=== PATIENT | female | born 1960 | race American Indian/Alaskan Native ===

== ENCOUNTER 2018-10-05 20:40 | Observation (INO) | payer BC, OTHER ==
[2018-10-05 20:41] VITALS: BMI 42.4
--- NOTE | 2018-10-05 21:24 | ED PDOC ---
Arrival/HPI - General Chief Complaint: Headache Time Seen by Provider: 10/05/18 21:13 Historian: Patient - History of Present Illness Narrative History of Present Illness (Text): 10/05/18 21:22 Lexi Fierro is a 57 year old female, whose past medical history includes CVA, hypertension, and hyperlipidemia, who presents to the emergency department complaining of flank pain and headache. Patient states she has been experiencing headache and bilateral flank pain for the past 2-3 days. Patient reports a low grade fever yesterday and some right sided neck discomfort. Patient notes she was recently seen at an Urgent Care for similar symptoms and given IM antibiotics and prescription for Macrobid for a UTI. Patient denies any chills, abdominal pain, nausea, vomiting, diarrhea, dizziness, focal neurological deficits, or any other complaints. Symptom Onset: Gradual Symptom Course: Unchanged Activities at Onset: Light Context: Home Past Medical History - Provider Review Nursing Documentation Reviewed: Yes - Tetanus Immunization Tetanus Immunization: Unknown - Cardiac Hx Hypertension: Yes - Pulmonary Hx Respiratory Disorders: No - Neurological HX Cerebrovascular Accident: Yes (2012) - Renal Hx Renal Disorder: No - Endocrine/Metabolic Hx Diabetes Mellitus Type 2: Yes - Hematological/Oncological Hx Blood Disorders: No - Psychiatric Hx Psychophysiologic Disorder: No Hx Substance Use: Yes - Surgical History Other/Comment: hernia age 1, mandible cyst 14yrs, couple of etopic pregnancies - Anesthesia Hx Anesthesia: Yes Hx Anesthesia Reactions: No Hx Malignant Hyperthermia: No - Suicidal Assessment Feels Threatened In Home Enviroment: No Family/Social History - Physician Review Nursing Documentation Reviewed: Yes Family/Social History: Unknown Family HX Smoking Status: Former Smoker Hx Alcohol Use: No Hx Substance Use: Yes Substance used: marijuana Allergies/Home Meds Allergies/Adverse Reactions: Allergies No Known Allergies Allergy (Verified 10/05/18 21:11) Home Medications: Home Meds Medication Instructions Recorded Confirmed Amlodipine/Valsartan [Exforge 10 1 tab PO DAILY 04/10/15 04/10/15 mg-320 mg] Aspirin [Aspirin EC] 81 mg PO DAILY 04/10/15 04/10/15 Carvedilol Phosphate [Coreg Cr] 80 mg PO DAILY 04/10/15 04/10/15 Rosuvastatin Calcium [Crestor] 5 mg PO DAILY 04/10/15 04/10/15 Vitamin B Complex [Super B100] 1 cap PO DAILY 04/10/15 04/10/15 Review of Systems - Physician Review All systems were reviewed & negative as marked: Yes - Review of Systems Constitutional: Fevers Eyes: Normal ENT: Normal Respiratory: Normal Cardiovascular: Normal Gastrointestinal: Normal Genitourinary Female: Normal Musculoskeletal: Back Pain, Neck Pain Skin: Normal Neurological: Headache Endocrine: Normal Hemo/Lymphatic: Normal Psychiatric: Normal Physical Exam Vital Signs Reviewed: Yes Vital Signs Temp Pulse Resp BP Pulse Ox 10/05/18 21:09 99.2 F 96 H 17 189/94 H 96 Temperature: Afebrile Blood Pressure: Hypertensive Pulse: Regular Respiratory Rate: Normal Appearance: Positive for: Well-Appearing, Non-Toxic, Comfortable Pain Distress: None Mental Status: Positive for: Alert and Oriented X 3 - Systems Exam Head: Present: Atraumatic, Normocephalic Pupils: Present: PERRL Extroacular Muscles: Present: EOMI Conjunctiva: Present: Normal Mouth: Present: Moist Mucous Membranes Neck: Present: Normal Range of Motion Respiratory/Chest: Present: Clear to Auscultation, Good Air Exchange. No: Respiratory Distress, Accessory Muscle Use Cardiovascular: Present: Regular Rate and Rhythm, Normal S1, S2. No: Murmurs Abdomen: No: Tenderness, Distention, Peritoneal Signs Back: Present: CVA Tenderness (Bilateral CVA tenderness) Upper Extremity: Present: Normal Inspection. No: Cyanosis, Edema Lower Extremity: Present: Normal Inspection. No: Edema Neurological: Present: GCS=15, CN II-XII Intact, Speech Normal Skin: Present: Warm, Dry, Normal Color. No: Rashes Psychiatric: Present: Alert, Oriented x 3, Normal Insight, Normal Concentration Medical Decision Making ED Course and Treatment: 10/05/18 21:22 Impression: 57 year old female complaining of headache, bilateral flank pain, low-grade fever, and right-sided neck discomfort. Plan: -- CT Head w/o contrast -- Labs -- Urinalysis -- IV fluids -- Reassess and disposition Progress Notes: 10/05/18 23:15 Reviewed radiology, CXR shows no acute processes. CT Head: BRAIN Chronic periventricular and subcortical microvascular disease is seen. VENTRICLES: There is generalized parenchymal atrophy noted as demonstrated by symmetrical dilatation of ventricles and sulci. ORBITS: The orbits are unremarkable. SINUSES AND MASTOIDS: The paranasal sinuses and mastoid air cells are clear. BONES: No fracture. SOFT TISSUES: Unremarkable. MISCELLANEOUS: No acute intracranial pathology. IMPRESSION: 1. There is generalized parenchymal atrophy noted as demonstrated by symmetrical dilatation of ventricles and sulci. 2. Chronic periventricular and subcortical microvascular disease is seen. 3. No acute intracranial pathology. Electronically signed on Oct 05, 2018 11:03:16 PM EST by: Servando Levine M.D., MBA Certified By [employer] & [employer] Fellowship Trained MRI and CT Specialist 10/06/18 02:50 CT Abdomen and Pelvis:Subsegmental atelectatic changes in the lower lobes. Mild pericardial effusion. Mild cardiomegaly. Small sliding hiatal hernia. Uncomplicated colonic diverticulosis. 2.9 cm right renal cyst. Normal unenhanced liver. Normal gallbladder and extrahepatic biliary system. Normal unenhanced spleen. Normal pancreas. Normal bilateral adrenal glands. Normal size of the right kidney. There is no right renal mass. There are no right renal calculi. There is no right hydronephrosis. Normal visualized right ureter. Normal size of the left kidney. There is no left renal mass. There are no left renal calculi. There is no left hydronephrosis. Normal visualized left ureter. Normal visualized stomach. Normal small intestine. Normal colon. The appendix is visualized and appears normal. There is no demonstrated peritoneal fluid. Normal abdominal aorta. Normal inferior vena cava. Normal retroperitoneum. Normal urinary bladder. There is no pelvic mass lesion or lymphadenopathy. There is no pelvic fluid. Normal abdominal wall. Normal osseous structures. IMPRESSION: Right renal cyst, likely simple. Subsegmental atelectatic changes in the lower lobes. Mild pericardial effusion. Mild cardiomegaly. Small sliding hiatal hernia. Uncomplicated colonic diverticulosis. 10/06/18 03:[address] Guerra, who is aware and agrees with plan. Accepts pt in to hospitalist. Pt will go to [facility] observation for intractable flank pain, headache, and renal insufficiency. chairman president and chief executive officer refrigeration supervisor notified. - Lab Interpretations I have reviewed the lab results: Yes - RAD Interpretation Objects Conservator: ED Physician, Radiologist - Scribe Statement The provider has reviewed the documentation as recorded by the Jessica Morris Provider Scribe Attestation: All medical record entries made by the Jessica were at my direction and personally dictated by me. I have reviewed the chart and agree that the record accurately reflects my personal performance of the history, physical exam, medical decision making, and the department course for this patient. I have also personally directed, reviewed, and agree with the discharge instructions and disposition. Disposition/Present on Arrival - Present on Arrival Any Indicators Present on Arrival: No History of DVT/PE: No History of Uncontrolled Diabetes: No Urinary Catheter: No History of Decub. Ulcer: No History Surgical Site Infection Following: None - Disposition Have Diagnosis and Disposition been Completed?: Yes Diagnosis: Bilateral flank pain, Renal insufficiency, Headache Disposition: HOSPITALIZED Disposition Time: 03:18 Patient Problems: Current Active Problems Problem Status Onset Bilateral flank pain Acute Headache Acute Renal insufficiency Acute Condition: STABLE
[2018-10-05] MEDS ORDERED: Sodium Chloride 0.9% 1,000 ML IV STA (21:26)
[2018-10-05 22:05] LABS: HEMOGLOBIN 10.6 g/dL (12.0-16.0); MEAN CELL VOLUME 81.8 fl (80.0-105.0); MEAN CORPUSCULAR HEMOGLOBIN 26.4 pg (25.0-35.0); MEAN CORPUSCULAR HGB CONC 32.3 g/dl (31.0-37.0); MEAN PLATELET VOLUME 10.4 fl (7.0-11.0); RBC 4.01 10^6/uL (3.5-6.1)
[2018-10-05 22:37] LABS: ALBUMIN 4.4 g/dL (3.0-4.8); CALCIUM 9.8 mg/dL (8.4-10.5)
[2018-10-05 23:12] LABS: URINE APPEARANCE CLEAR (CLEAR); URINE BILIRUBIN NEGATIVE (NEGATIVE); URINE BLOOD SMALL (NEGATIVE); URINE COLOR YELLOW (YELLOW); URINE GLUCOSE (UA) NEGATIVE (NEGATIVE); URINE LEUKOCYTE ESTERASE NEGATIVE Leu/uL (NEGATIVE); URINE PROTEIN >=300 mg/dL (<30 mg/dL); URINE UROBILINOGEN 0.2 E.U./dL (<1 E.U./dL)
[2018-10-05 23:15] LABS: URINE BACTERIA TRACE /hpf; URINE EPITHELIAL CELLS 0 - 2 /hpf (0-5); URINE RBC 0 - 2 /hpf (0-2)
[2018-10-06] MEDS ORDERED: Morphine 2 mg/ml ISec IVP STA (03:08)
[2018-10-06] MEDS ORDERED: Sodium Chloride 0.9% 1,000 ML IV SCH (03:15)
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
[2018-10-06] MEDS: cefTRIAXone 1 gm 1 GM/100 ML BAG IVPB SCH (04:45)
[2018-10-06 05:28] LABS: BASO # 0.02 K/mm3 (0.0-2.0); BASO % 0.3 % (0.0-3.0); EOS % 0.4 % (1.5-5.0); GRAN # 5.47 (1.4-6.5); GRAN % 69.3 % (50.0-68.0); HEMOGLOBIN 10.1 g/dL (12.0-16.0); LYMPH # 1.9 (1.2-3.4); LYMPH % 23.8 % (22.0-35.0); MEAN CELL VOLUME 82.4 fl (80.0-105.0); MEAN CORPUSCULAR HEMOGLOBIN 26.6 pg (25.0-35.0); MEAN CORPUSCULAR HGB CONC 32.3 g/dl (31.0-37.0); MEAN PLATELET VOLUME 10.2 fl (7.0-11.0); MONO # 0.5 (0.1-0.6); MONO % 6.2 % (1.0-6.0); RBC 3.8 10^6/uL (3.5-6.1); WHITE BLOOD COUNT 7.9 10^3/uL (4.5-11.0)
[2018-10-06 05:59] LABS: ALBUMIN 4.5 g/dL (3.0-4.8); IRON 47 ug/dL (45-180)
[2018-10-06 06:08] LABS: % IRON SATURATION 20 % (20-55); TOTAL IRON BINDING CAPACITY 235 ug/dL (265-497)
[2018-10-06 06:09] LABS: TROPONIN I 0.03 ng/mL
[2018-10-06] MEDS ORDERED: Pneumococcal 23-Valent Vaccine IM ONE (06:38)
[2018-10-06 07:26] LABS: BARBITURATES, UR NEGATIVE (NEGATIVE); BENZODIAZEPINES, UR NEGATIVE (NEGATIVE); OPIATES, UR POSITIVE (NEGATIVE); PHENCYCLIDINE, UR NEGATIVE (NEGATIVE)
[2018-10-06 07:33] LABS: CREATININE,RANDOM URINE 171 mg/dL
[2018-10-06] MEDS: Insulin Lispro (humaLOG) LOW Coverage SC SCH ×4 (08:00→22:10)
[2018-10-06 08:36] LABS: FREE T4 0.94 ng/dL (0.78-2.19)
[2018-10-06 08:50] LABS: OSMOLALITY,URINE 564 mosm/kg (300-1000)
--- NOTE | 2018-10-06 09:12 | RAD ---
Date of service: 10/05/2018 HISTORY: medical clearance COMPARISON: No prior. FINDINGS: LUNGS: No active pulmonary disease. PLEURA: No significant pleural effusion identified, no pneumothorax apparent. CARDIOVASCULAR: No aortic atherosclerotic calcification present. Mild cardiomegaly. Mild vascular congestion OSSEOUS STRUCTURES: No significant abnormalities. VISUALIZED UPPER ABDOMEN: Normal. OTHER FINDINGS: None. IMPRESSION: Mild cardiomegaly and mild vascular congestion
[2018-10-06] MEDS: Lidocaine 5% Patch TD SCH (10:04)
--- NOTE | 2018-10-06 10:22 | CT ---
Date of service: 10/05/2018 PROCEDURE: CT HEAD WITHOUT CONTRAST. HISTORY: headache COMPARISON: None available. TECHNIQUE: Axial computed tomography images were obtained through the head/brain without intravenous contrast. Radiation dose: Total exam DLP = 907.57 mGy-cm. This CT exam was performed using one or more of the following dose reduction techniques: Automated exposure control, adjustment of the mA and/or kV according to patient size, and/or use of iterative reconstruction technique. FINDINGS: HEMORRHAGE: No intracranial hemorrhage. BRAIN: No mass effect or edema. Chronic microvascular changes are seen in the subcortical and periventricular white matter right greater than left. VENTRICLES: Unremarkable. No hydrocephalus. CALVARIUM: Unremarkable. PARANASAL SINUSES: Unremarkable as visualized. No significant inflammatory changes. MASTOID AIR CELLS: Unremarkable as visualized. No inflammatory changes. OTHER FINDINGS: The report concurs with the preliminary [facility] report IMPRESSION: No acute intracranial findings
--- NOTE | 2018-10-06 11:13 | CARD ---
APPROVED REPORT Date of service: 10/06/2018 EKG Measurement Heart [id number] <Conclusion> Normal sinus rhythm Possible Left atrial enlargement
[2018-10-06 13:09] LABS: FOLATE 14.9 ng/mL
--- NOTE | 2018-10-06 13:32 | CT ---
PROCEDURE: CT Abdomen and Pelvis without Oral or IV contrast. HISTORY: flank pain COMPARISON: None available TECHNIQUE: Contiguous axial images of the abdomen and pelvis. No oral or IV contrast administered. Coronal and Sagittal reformats generated and reviewed. Radiation dose: Total exam DLP = 968.91 mGy-cm. This CT exam was performed using one or more of the following dose reduction techniques: Automated exposure control, adjustment of the mA and/or kV according to patient size, and/or use of iterative reconstruction technique. FINDINGS: There is limited evaluation of the solid organs without the administration of IV contrast. LOWER THORAX: Mild bibasilar atelectasis. No visible pleural effusion or pneumothorax. Small pericardial effusion. LIVER: Unremarkable unenhanced appearance. GALLBLADDER AND BILE DUCTS: Contracted state precludes adequate evaluation. PANCREAS: Unremarkable unenhanced appearance. SPLEEN: Unremarkable unenhanced appearance. ADRENALS: Unremarkable unenhanced appearance. KIDNEYS AND URETERS: No hydronephrosis or obstructing renal calculus. Right renal cyst. BLADDER: The urinary bladder appears unremarkable. REPRODUCTIVE: Uterus is present. APPENDIX: The appendix appears within normal limits of caliber. No secondary signs of acute appendicitis. BOWEL: The stomach is nondistended. Lack of oral contrast limits evaluation for bowel pathology. The bowel loops appear within normal limits of caliber without evidence of intestinal obstruction. Diverticulosis without CT evidence of acute diverticulitis. PERITONEUM: No significant free fluid. No definite free air. LYMPH NODES: No bulky lymphadenopathy identified. VASCULATURE: Atherosclerotic calcifications of the aorta. No aortic aneurysm. BONES: Mild degenerative changes. OTHER FINDINGS: None. IMPRESSION: Mild bibasilar atelectasis. Small pericardial effusion. Diverticulosis without CT evidence of acute diverticulitis. Right renal cyst. Additional incidental findings as above. Preliminary impression was provided by Fundology.
--- NOTE | 2018-10-06 14:58 | CP.PCM.CON ---
History of Present Illness - History of Present Illness History of Present Illness: Nephrology Consultation Note: Assessment: Stable Acute Kidney Injury (N17.9) likely due to hemodynamic changes, decreased oral intake Hypertensive Chronic Kidney Disease (I12.9) Chronic Kidney Disease (N18.3) Stage 3 with 1.5 gram albuminuria (R80.9) likely due to HTN, NSAIDs Anemia (D64.9), Vit D def Secondary Hyperparathyroidism (E21.1) uncontrolled severe HTn with urgency Plan No acute need for renal replacement therapy at this time. Hypertension control with meds as ordered. Maintain hemodynamics stable. Avoid hypotension. Patient not on ACEI/ARB at present but can resume ARB, switch to losartan 100 mg/d (due to recent FDA concerns on valsartan) Monitor Input/Output, daily weights and renal function with basic metabolic panel start iron, MVI and weekly Vit D Check urine analysis, spot protein/creatinine, albumin/creatinine ratio Check GN work up as C3, C4, JYOTI, Anti dsDNA, HIV/Hep B and Hep C serology Anemia work up with TSAT/Ferritin/Vitamin B12/folate, serum protein electrophoresis with immunofixation, serum free light chain assay ([facility]/Lambda) Check for 25-OH vitamin D, iPTH, phosphorus level. Secondary HTN work up with plasma renin/aldosterone, plasma metanephrine and renal artery Doppler to r/o renal artery stenosis Dose meds/antibiotics for reduced GFR. Avoid fleets enema/magnesium based laxatives. Avoid nephrotoxins/NSAIDs/ iodinated contrast (unless needed emergently) Glycemic control. pt stop licorice Further work up/management as per primary team Thanks for allowing me to participate in care of your patient. Will follow patient with you. Please call if any Qs. had d/w daughter and team Dr Rahat Polanco Office: [phone] Chief Complaint; headache Reason for consult: Acute Kidney Injury, CKD HPI: Pt is a 57 F with hx of hypertension (years) CVA hyperlipidemia asthma CKD ? stage (likely 3) presented with complaints of uncontrolled HTN, headache and abnormal labs Denies OTC/herbal meds or NSAIDs now but had takes alleve for years inpast until 1 month ago. reprts headache with left blurry vision and decreased appetite/karina intake for last few days. No recent iodinated contrast exposure. No obvious episodes of low BP. sometimes eats licorice candy denies smoking/etoh pt says she was told that she had weak kidney many years ago. she hadn't followed up with doctors lab in sep showed cr 1.9, urine alb/cr 1.5 gram. vit d 9 ROS: Cardiovascular: No chest pain. Pulmonary: No shortness of breath Gastrointestinal: denies abdominal pain No nausea. No vomiting. Genitourinary: No pain while urinating. Denies blood in urine. All other negative except as mentioned in HPI Physical Examination: General Appearance: Comfortable, in no acute respiratory distress, co-operative . obese Vitals reviewed and noted as below Head; Atraumatic, normocephalic ENT: no ulcers no thrush. Tongue is midline. Oropharynx: no rash or ulcers. EYES: Pupils are equal, round and reactive to light accommodation. Eye muscles and extraocular movement intact. Sclera is anicteric. Neck; supple no lymphadenopathy, no thyromegaly or bruit Lungs: Normal respiratory rate/effort. Breath sounds bilateral equal and clear Heart: Normal rate. s1s2 normal. No rub or gallop. Extremities: no edema. No varicose veins Neurological: Patient is alert, awake and oriented to person, place and time. No focal deficit. Strength bilateral appropriate and equal Skin: Warm and dry. Normal turgor. No rash. Palpitation: Normal elasticity for age Abdomen: Abdomen is soft. Bowel sounds +. There is no abdominal tenderness, no guarding/rigidity no organomegaly Psych: normal insight and normal affect/mood MSK: no joint tenderness or swelling. Digits and nails normal, no deformity : kidney or bladder not palpable Labs/imaging reviewed. Past medical history, past surgical history, family history, social history, allergy reviewed and noted as below Family hx: no hx of CKD. Rest non-contributory adrenal WNLS. rt renal cyst Past Patient History - Tetanus Immunizations Tetanus Immunization: Unknown - Past Social History Smoking Status: Never Smoked - CARDIAC Hx Hypertension: Yes - PULMONARY Hx Respiratory Disorders: No - NEUROLOGICAL HX Cerebrovascular Accident: Yes (2012) - RENAL Hx Chronic Kidney Disease: No Hx Renal Failure: Yes - ENDOCRINE/METABOLIC Hx Diabetes Mellitus Type 2: Yes - HEMATOLOGICAL/ONCOLOGICAL Hx Blood Disorders: No - MUSCULOSKELETAL/RHEUMATOLOGICAL Hx Falls: No - GENITOURINARY/GYNECOLOGICAL Hx Urinary Tract Infection: Yes - PSYCHIATRIC Hx Psychophysiologic Disorder: No - SURGICAL HISTORY Other/Comment: hernia age 1, mandible cyst 12yrs, couple of etopic pregnancies - ANESTHESIA Hx Anesthesia: Yes Hx Anesthesia Reactions: No Hx Malignant Hyperthermia: No Meds Allergies/Adverse Reactions: Allergies Allergy/AdvReac Type Severity Reaction Status Date / Time No Known Allergies Allergy Verified 10/05/18 21:11 - Medications Medications: Current Medications Acetaminophen (Tylenol 325mg Tab) 650 mg PO Q6H PRN PRN Reason: Fever >100.4 F Amlodipine Besylate (Norvasc) 10 mg PO DAILY ON LICENSE OF [facility] Last Admin: 10/06/18 10:05 Dose: 10 mg Aspirin (Ecotrin) 81 mg PO DAILY ON LICENSE OF [facility] Last Admin: 10/06/18 10:05 Dose: 81 mg Atorvastatin Calcium (Lipitor) 10 mg PO DIN CELIO Ferrous Gluconate (Fergon) 324 mg PO TID ON LICENSE OF [facility] Hydralazine HCl (Apresoline) 10 mg IVP Q6H PRN PRN Reason: Systolic Blood Pressure Last Admin: 10/06/18 06:12 Dose: 10 mg Hydrochlorothiazide (Microzide) 12.5 mg PO DAILY ON LICENSE OF [facility] Last Admin: 10/06/18 10:05 Dose: 12.5 mg Ceftriaxone Sodium (Rocephin 1 Gram Ivpb) 1 gm in 100 mls @ 100 mls/hr IVPB DAILY ON LICENSE OF [facility]; Protocol Last Admin: 10/06/18 04:45 Dose: 100 mls/hr Insulin Human Lispro (Humalog Low) 0 units SC ACHS ON LICENSE OF [facility]; Protocol Last Admin: 10/06/18 12:00 Dose: Not Given Lidocaine (Lidoderm) 1 ea TD DAILY ON LICENSE OF [facility] Last Admin: 10/06/18 10:04 Dose: 1 ea Valsartan (Diovan) 320 mg PO DAILY ON LICENSE OF [facility] Vitamin B Complex/Vit C/Folic Acid (Nephro-Billy) 1 tab PO 0800 ON LICENSE OF [facility] Results - Vital Signs Recent Vital Signs: Last Vital Signs Temp 99.2 F 10/06/18 06:05 Pulse 86 10/06/18 14:00 Resp 18 10/06/18 14:00 BP 139/84 10/06/18 14:00 Pulse Ox 100 10/06/18 14:00 - Labs Result Diagrams: 10/06/18 05:10 10/06/18 05:10 Labs: Laboratory Results - last 24 hr 10/05/18 10/05/18 10/05/18 21:52 22:22 22:49 WBC 8.0 RBC 4.01 Hgb 10.6 L Hct 32.8 L MCV 81.8 MCH 26.4 MCHC 32.3 RDW 15.0 H Plt Count 199 MPV 10.4 Gran % Lymph % (Auto) Norman % (Auto) Eos % (Auto) Baso % (Auto) Gran # Lymph # (Auto) Norman # (Auto) Eos # (Auto) Baso # (Auto) Sodium 136 Potassium 4.3 Chloride 104 Carbon Dioxide 21 Anion Gap 15 BUN 30 H Creatinine 2.1 H Est GFR ( Amer) 29 Est GFR (Non-Af Amer) 24 POC Glucose (mg/dL) Random Glucose 110 Hemoglobin A1c Calcium 9.8 Phosphorus Magnesium Iron TIBC % Saturation Transferrin Ferritin Total Bilirubin 0.6 AST 23 ALT 16 Alkaline Phosphatase 107 Troponin I Total Protein 8.8 H Albumin 4.4 Globulin 4.4 Albumin/Globulin Ratio 1.0 L Triglycerides Cholesterol LDL Cholesterol Direct HDL Cholesterol Vitamin B12 Folate Free T4 TSH 3rd Generation Urine Color Yellow Urine Appearance Clear Urine pH 6.0 Ur Specific [place] >= 1.030 Urine Protein >=300 H Urine Glucose (UA) Negative Urine Ketones Negative Urine Blood Small H Urine Nitrate Negative Urine Bilirubin Negative Urine Urobilinogen 0.2 Ur Leukocyte Esterase Negative Urine RBC 0 - 2 Urine WBC 1 - 3 Ur Epithelial Cells 0 - 2 Urine Bacteria Trace Urine Osmolality Ur Random Creatinine Ur Random Sodium Urine Opiates Screen Urine Methadone Screen Ur Barbiturates Screen Ur Phencyclidine Scrn Ur Amphetamines Screen U Benzodiazepines Scrn U Oth Cocaine Metabols U Cannabinoids Screen 10/06/18 10/06/18 10/06/18 04:30 04:30 04:31 WBC RBC Hgb Hct MCV MCH MCHC RDW Plt Count MPV Gran % Lymph % (Auto) Norman % (Auto) Eos % (Auto) Baso % (Auto) Gran # Lymph # (Auto) Norman # (Auto) Eos # (Auto) Baso # (Auto) Sodium Potassium Chloride Carbon Dioxide Anion Gap BUN Creatinine Est GFR ( Amer) Est GFR (Non-Af Amer) POC Glucose (mg/dL) Random Glucose Hemoglobin A1c Calcium Phosphorus Magnesium Iron TIBC % Saturation Transferrin Ferritin Total Bilirubin AST ALT Alkaline Phosphatase Troponin I Total Protein Albumin Globulin Albumin/Globulin Ratio Triglycerides Cholesterol LDL Cholesterol Direct HDL Cholesterol Vitamin B12 Folate Free T4 TSH 3rd Generation Urine Color Urine Appearance Urine pH Ur Specific [place] 1.025 Urine Protein Urine Glucose (UA) Urine Ketones Urine Blood Urine Nitrate Urine Bilirubin Urine Urobilinogen Ur Leukocyte Esterase Urine RBC Urine WBC Ur Epithelial Cells Urine Bacteria Urine Osmolality 564 Ur Random Creatinine 171 Ur Random Sodium 69 Urine Opiates Screen Positive H Urine Methadone Screen Negative Ur Barbiturates Screen Negative Ur Phencyclidine Scrn Negative Ur Amphetamines Screen Negative U Benzodiazepines Scrn Negative U Oth Cocaine Metabols Negative U Cannabinoids Screen Positive H 10/06/18 10/06/18 10/06/18 05:10 05:10 05:10 WBC 7.9 RBC 3.80 Hgb 10.1 L Hct 31.3 L MCV 82.4 MCH 26.6 MCHC 32.3 RDW 15.0 H Plt Count 200 MPV 10.2 Gran % 69.3 H Lymph % (Auto) 23.8 Norman % (Auto) 6.2 H Eos % (Auto) 0.4 L Baso % (Auto) 0.3 Gran # 5.47 Lymph # (Auto) 1.9 Norman # (Auto) 0.5 Eos # (Auto) 0.0 Baso # (Auto) 0.02 Sodium 138 Potassium 4.2 Chloride 103 Carbon Dioxide 23 Anion Gap 16 BUN 29 H Creatinine 2.1 H Est GFR ( Amer) 29 Est GFR (Non-Af Amer) 24 POC Glucose (mg/dL) Random Glucose 114 H Hemoglobin A1c 6.8 H Calcium 10.0 Phosphorus 4.4 Magnesium 2.2 Iron TIBC % Saturation Transferrin Ferritin 277.0 Total Bilirubin 0.5 AST 24 ALT 15 Alkaline Phosphatase 114 Troponin I 0.03 Total Protein 9.0 H Albumin 4.5 Globulin 4.5 Albumin/Globulin Ratio 1.0 L Triglycerides 308 H Cholesterol 418 H LDL Cholesterol Direct 129 HDL Cholesterol 46 Vitamin B12 394 Folate 14.9 Free T4 TSH 3rd Generation Urine Color Urine Appearance Urine pH Ur Specific [place] Urine Protein Urine Glucose (UA) Urine Ketones Urine Blood Urine Nitrate Urine Bilirubin Urine Urobilinogen Ur Leukocyte Esterase Urine RBC Urine WBC Ur Epithelial Cells Urine Bacteria Urine Osmolality Ur Random Creatinine Ur Random Sodium Urine Opiates Screen Urine Methadone Screen Ur Barbiturates Screen Ur Phencyclidine Scrn Ur Amphetamines Screen U Benzodiazepines Scrn U Oth Cocaine Metabols U Cannabinoids Screen 10/06/18 10/06/18 10/06/18 05:10 05:10 05:13 WBC RBC Hgb Hct MCV MCH MCHC RDW Plt Count MPV Gran % Lymph % (Auto) Norman % (Auto) Eos % (Auto) Baso % (Auto) Gran # Lymph # (Auto) Norman # (Auto) Eos # (Auto) Baso # (Auto) Sodium Potassium Chloride Carbon Dioxide Anion Gap BUN Creatinine Est GFR ( Amer) Est GFR (Non-Af Amer) POC Glucose (mg/dL) Random Glucose Hemoglobin A1c Calcium Phosphorus Magnesium Iron 47 TIBC 235 L % Saturation 20 Transferrin 187.96 L Ferritin Total Bilirubin AST ALT Alkaline Phosphatase Troponin I Total Protein Albumin Globulin Albumin/Globulin Ratio Triglycerides Cholesterol LDL Cholesterol Direct HDL Cholesterol Vitamin B12 Folate Free T4 0.94 TSH 3rd Generation 2.09 Urine Color Urine Appearance Urine pH Ur Specific [place] Urine Protein Urine Glucose (UA) Urine Ketones Urine Blood Urine Nitrate Urine Bilirubin Urine Urobilinogen Ur Leukocyte Esterase Urine RBC Urine WBC Ur Epithelial Cells Urine Bacteria Urine Osmolality Ur Random Creatinine Ur Random Sodium Urine Opiates Screen Urine Methadone Screen Ur Barbiturates Screen Ur Phencyclidine Scrn Ur Amphetamines Screen U Benzodiazepines Scrn U Oth Cocaine Metabols U Cannabinoids Screen 10/06/18 06:28 WBC RBC Hgb Hct MCV MCH MCHC RDW Plt Count MPV Gran % Lymph % (Auto) Norman % (Auto) Eos % (Auto) Baso % (Auto) Gran # Lymph # (Auto) Norman # (Auto) Eos # (Auto) Baso # (Auto) Sodium Potassium Chloride Carbon Dioxide Anion Gap BUN Creatinine Est GFR ( Amer) Est GFR (Non-Af Amer) POC Glucose (mg/dL) 87 Random Glucose Hemoglobin A1c Calcium Phosphorus Magnesium Iron TIBC % Saturation Transferrin Ferritin Total Bilirubin AST ALT Alkaline Phosphatase Troponin I Total Protein Albumin Globulin Albumin/Globulin Ratio Triglycerides Cholesterol LDL Cholesterol Direct HDL Cholesterol Vitamin B12 Folate Free T4 TSH 3rd Generation Urine Color Urine Appearance Urine pH Ur Specific [place] Urine Protein Urine Glucose (UA) Urine Ketones Urine Blood Urine Nitrate Urine Bilirubin Urine Urobilinogen Ur Leukocyte Esterase Urine RBC Urine WBC Ur Epithelial Cells Urine Bacteria Urine Osmolality Ur Random Creatinine Ur Random Sodium Urine Opiates Screen Urine Methadone Screen Ur Barbiturates Screen Ur Phencyclidine Scrn Ur Amphetamines Screen U Benzodiazepines Scrn U Oth Cocaine Metabols U Cannabinoids Screen
[2018-10-06] MEDS ORDERED: Ergocalciferol 50,000 Intl Units Cap PO SCH (15:00)
[2018-10-06 15:05] LABS: TOTAL PROTEIN,RANDOM URINE 1092 mg/L
--- NOTE | 2018-10-06 16:39 | CARD ---
APPROVED REPORT Date of service: 10/06/2018 EXAM: Two-dimensional and M-mode echocardiogram with Doppler and color Doppler. INDICATION CARDIOMEGALY 2D DIMENSIONS Left Atrium (2D)3.3 (1.6-4.0cm)IVSd1.9 (0.7-1.1cm) LVDd4.1 (3.9-5.9cm)PWd1.9 (0.7-1.1cm) LVDs2.7 (2.5-4.0cm)FS (%) 33.4 % LVEF (%)62.5 (>50%) M-Mode DIMENSIONS Aortic Root3.30 (2.2-3.7cm)Aortic Cusp Exc.1.50 (1.5-2.0cm) Aortic Valve AoV Peak Kkryjdew730.0cm/Giulia Peak GR.10mmHg Mitral Valve MV E Rvfjaarm86.0cm/sMV A Okpdeutp32.0cm/sE/A ratio0.7 TDI E/Lateral E'0.0E/Medial E'0.0 Tricuspid Valve TR Peak [id number] [id number] Peak Gr.19mmHg [id number] LEFT VENTRICLE The left ventricle is normal size. There is severe concentric left ventricular hypertrophy. The left ventricular function is normal. The left ventricular ejection fraction is within the normal range.63%. RIGHT VENTRICLE The right ventricle is normal size. The right ventricular systolic function is normal. ATRIA The left atrium size is normal. The right atrium size is normal. AORTIC VALVE Thickened Aortic Valve Opening Normal. MITRAL VALVE The mitral valve is normal in structure. Mitral regurgitation is trace to mild. TRICUSPID VALVE The tricuspid valve is normal in structure. PERICARDIAL EFFUSION Trace Pericardial Effusion Present. <Conclusion> LV Size Normal.There is severe concentric left ventricular hypertrophy. The left ventricular function is normal. The left ventricular ejection fraction is within the normal range.63%. LV Shows Moderate Diastolic Dysfunction. The right ventricle is normal size. The right ventricular systolic function is normal. The left atrium size is normal. The right atrium size is normal. Thickened Aortic Valve Opening Normal. The mitral valve is normal in structure. Mitral regurgitation is trace to mild. The tricuspid valve is normal in structure. Trace Pulmonic Regurge. Trace Pericardial Effusion Present.
[2018-10-06 18:01] LABS: HEPATITIS B SURFACE AG Negative (NEGATIVE)
[2018-10-06 18:06] LABS: HEPATITIS B CORE AB NEGATIVE (NEGATIVE)
[2018-10-06 18:19] LABS: HEPATITIS C ANTIBODY NEGATIVE (NEGATIVE)
--- NOTE | 2018-10-06 20:24 | US ---
PROCEDURE: Bilateral renal artery duplex ultrasound. CLINICAL HISTORY: Renal artery stenosis. Uncontrolled hypertension. Evaluate for renovascular hypertension. PHYSICIAN(S): Chase Gary M.D. TECHNIQUE: Duplex sonography with color-flow Doppler was used to evaluate the visualized segments of the main renal arteries. The patient was evaluated in a fasting state. Imaging in a supine and decubitus position was performed. Limited evaluation of the arcuate waveforms and resistive indices were performed. FINDINGS: The study is limited by bowel gas breathing and tortuous vessels. The kidneys are normal in size, shape, and location. The right kidney measures 11.2cm in length and the left kidney measures 11.3cm in length. No solid renal masses, abnormal calcifications, or hydronephrosis is seen. The main right renal artery is somewhat tortuous.. The peak systolic velocity in the right main renal artery is 98 cm/sec. This is consistent with a 0 to 49% stenosis in the main right renal artery. The arcuate waveforms are normal. The resistive index is normal. The main left renal artery is also somewhat tortuous.. The peak systolic velocity in the main left renal artery is 96cm/sec. This corresponds to a 0 to 49% stenosis in the main left renal artery. The arcuate waveforms and resistive indices are normal. IMPRESSION: 1. The main renal arteries are somewhat tortuous and visualization is limited 2. No sonographically significant stenosis is identified. 3. The kidneys are normal and symmetric in size. There are no solid renal masses, abnormal calcifications or hydronephrosis noted.
[2018-10-07 07:36] LABS: BASO # 0.02 K/mm3 (0.0-2.0); BASO % 0.3 % (0.0-3.0); EOS # 0.1 (0.0-0.7); EOS % 1.6 % (1.5-5.0); GRAN # 3.76 (1.4-6.5); HEMOGLOBIN 9.6 g/dL (12.0-16.0); LYMPH # 1.5 (1.2-3.4); LYMPH % 24.2 % (22.0-35.0); MEAN CELL VOLUME 81.5 fl (80.0-105.0); MEAN CORPUSCULAR HEMOGLOBIN 26.1 pg (25.0-35.0); MEAN PLATELET VOLUME 9.8 fl (7.0-11.0); MONO # 0.7 (0.1-0.6); MONO % 11.9 % (1.0-6.0); RBC 3.68 10^6/uL (3.5-6.1); RED CELL DISTRIBUTION WIDTH 14.7 % (11.5-14.5); WHITE BLOOD COUNT 6.1 10^3/uL (4.5-11.0)
[2018-10-07 07:59] LABS: ALBUMIN 4.1 g/dL (3.0-4.8); CALCIUM 9.5 mg/dL (8.4-10.5)
[2018-10-07] MEDS: Insulin Lispro (humaLOG) LOW Coverage SC SCH ×4 (08:28→22:00)
[2018-10-07] MEDS: Multivitamin Vitamin B Complex (Nephro-Vite) Tab PO SCH (10:48)
[2018-10-07] MEDS: Lidocaine 5% Patch TD SCH (10:48)
[2018-10-07] MEDS: cefTRIAXone 1 gm 1 GM/100 ML BAG IVPB SCH (10:48)
--- NOTE | 2018-10-07 11:00 | CP.PCM.PN ---
<CatyRalf - Last Filed: 10/07/18 11:50> Subjective - Date & Time of Evaluation Date of Evaluation: 10/07/18 Time of Evaluation: 10:51 - Subjective Subjective: Medicine Progress Note for Dr. Gonzalez Patient seen and examined at bedside. No acute overnight events. Patient sitting comfortably in bed. Patient offers no complaints. Patient denies CP, SOB, n/v/d, abdominal pain, fever, chills, MICHAELS or dizziness. Objective - Vital Signs/Intake and Output Vital Signs (last 24 hours): Temp Pulse Resp BP Pulse Ox 98.7 F 80 18 133/75 96 10/07/18 06:00 10/07/18 06:00 10/07/18 06:00 10/07/18 06:00 10/07/18 06:00 Intake and Output: 10/07/18 10/07/18 06:59 18:59 Intake Total 180 Output Total 0 Balance 180 - Medications Medications: Current Medications Acetaminophen (Tylenol 325mg Tab) 650 mg PO Q6H PRN PRN Reason: Fever >100.4 F Last Admin: 10/06/18 21:08 Dose: 650 mg Amlodipine Besylate (Norvasc) 10 mg PO DAILY [facility] Last Admin: 10/06/18 10:05 Dose: 10 mg Aspirin (Ecotrin) 81 mg PO DAILY [facility] Last Admin: 10/06/18 10:05 Dose: 81 mg Atorvastatin Calcium (Lipitor) 10 mg PO DIN [facility] Last Admin: 10/06/18 17:33 Dose: 10 mg Ergocalciferol (Drisdol 50,000 Intl Units Cap) 1 cap PO Q7D [facility] Last Admin: 10/06/18 15:28 Dose: 1 cap Ferrous Gluconate (Fergon) 324 mg PO TID [facility] Last Admin: 10/06/18 17:33 Dose: 324 mg Hydralazine HCl (Apresoline) 10 mg IVP Q6H PRN PRN Reason: Systolic Blood Pressure Last Admin: 10/06/18 06:12 Dose: 10 mg Hydrochlorothiazide (Microzide) 12.5 mg PO DAILY [facility] Last Admin: 10/06/18 10:05 Dose: 12.5 mg Ceftriaxone Sodium (Rocephin 1 Gram Ivpb) 1 gm in 100 mls @ 100 mls/hr IVPB DAILY [facility]; Protocol Last Admin: 10/06/18 04:45 Dose: 100 mls/hr Insulin Human Lispro (Humalog Low) 0 units SC ACHS [facility]; Protocol Last Admin: 10/07/18 08:28 Dose: Not Given Lidocaine (Lidoderm) 1 ea TD DAILY [facility] Last Admin: 10/06/18 10:04 Dose: 1 ea Losartan Potassium (Cozaar) 100 mg PO DAILY [facility] Last Admin: 10/06/18 15:28 Dose: 100 mg Vitamin B Complex/Vit C/Folic Acid (Nephro-Billy) 1 tab PO 0800 [facility] - Labs Labs: 10/07/18 07:00 10/07/18 07:00 - Constitutional Appears: No Acute Distress - Head Exam Head Exam: NORMAL INSPECTION, NORMOCEPHALIC - Eye Exam Eye Exam: EOMI, Normal appearance, PERRL Pupil Exam: NORMAL ACCOMODATION - ENT Exam ENT Exam: Mucous Membranes Moist, Normal Exam - Neck Exam Neck Exam: Full ROM, Normal Inspection - Respiratory Exam Respiratory Exam: Clear to Ausculation Bilateral. absent: Rales, Rhonchi, Wheezes - Cardiovascular Exam Cardiovascular Exam: RRR, +S1, +S2. absent: Gallop, Rubs, Murmur - GI/Abdominal Exam GI & Abdominal Exam: Soft. absent: Distended, Guarding, Tenderness, Rebound - Extremities Exam Extremities Exam: Normal Inspection - Back Exam Back Exam: NORMAL INSPECTION - Neurological Exam Neurological Exam: Alert, Awake, Oriented x3 - Psychiatric Exam Psychiatric exam: Normal Affect, Normal Mood - Skin Skin Exam: Dry, Intact, Normal Color, Warm Assessment and Plan - Assessment and Plan (Free Text) Assessment: 57F w/ a PMH of CVA, HTN, DM, HLD, Asthma who presented to [facility] [place] ED w/ c/o of BL flank pain and headache x4 days. Patient admitted for management/ treatment of uncontrolled BP, MARIAH, and bacteruria. Plan: Fever - CT abdomen/pelvis showed mild bibaslar atelectasis, small pericardial effusion, diverticulosis, right renal cyst - Proteinuria on UA; Trace bacteruria w/o pyuria - Urine Culture - gram positive cocci, colony count < 10K - Blood cultures negative - Cont Rocephin 1gm QD MARIAH on CKD3 - Likely 2/2 to hemodynamic changes, decreased oral intake - FeNa 0.6%, prerenal - JYOTI, anti-dsDNA negative - Hepatitis B/C negative - GN workup pending per nephro: complement, HIV, urine microalbumin, total protein - Avoid nephrotoxic medications - nephrology consulted Hypertension - Cont Norvasc, Losartan, HCTZ - Hydralazine prn - Home valsartan d/c per nephro due to recent [employer] concern - Duplex Renal Artery US negative - Secondary HTN workup pending: metanephrines, Nando/renin ratio Anemia - Likely 2/2 to chronic disease - Iron studies consistent with chronic disease - Folate, B12 normal - Cont Ferrous gluconate - IF, kappa/lambda light chains pending DM - Hgb 6.8% - ISS - Accuchecks ACHS Hx CVA - C/w ASA 81 QD Hx DM - ISS Low ACHS - Fingersticks ACHS Hx HLD - Start Lipitor 10mg DIN Patient was seen, examined, and discussed w/ attending physician Dr. Gonzalez. Manjinder Byrne DO PGY2 <Karrie Gonzalez R - Last Filed: 10/09/18 22:03> Objective - Vital Signs/Intake and Output Vital Signs (last 24 hours): Temp Pulse Resp BP Pulse Ox 99.1 F 100 H 20 136/94 H 100 10/07/18 22:00 10/08/18 06:00 10/08/18 06:00 10/08/18 10:28 10/08/18 06:00 - Labs Labs: 10/08/18 07:00 10/08/18 07:00 Attending/Attestation - Attestation I have personally seen and examined this patient.: Yes I have fully participated in the care of the patient.: Yes I have reviewed all pertinent clinical information, including history, physical exam and plan: Yes Notes (Text): Patient seen and examined by me with resident at 10:10AM on 10/07/18. Case including HPI, physical exam, and assessment and plan discussed with resident. Agree with above with following additions/corrections. Patient is a 57 year old male with past medical history significant for CVA, h ypertension, hyperlipidemia, DM2, and asthma that presented to the emergency room with bilateral flank pain and headache. Patient states she is feeling a little better today. Still with some right CVA tenderness but no left CVA tenderness. Patient is tolerating diet. No nausea, vomiting, or abdominal pain. Patient denies any dysuria or burning with urination today. No chest pain or shortness of breath. No headaches or dizziness. No lightheadedness. No change in vision. No diarrhea or constipation. No fevers or chills. Physical exam: General: Awake and alert, sitting up in bed in no acute distress. HEENT: Normocephalic, atraumatic, Extraocular muscles intact, pupils equal and reactive, no scleral icterus. Oropharynx is pink and moist. No pharyngeal erythema or exudate appreciated. Neck is supple. Cardiovascular: Normal rhythm. Normal S1 and S2. No murmurs, rubs, or gallops appreciated. Pulmonary: Normal respiratory effort. No rhonchi, rales, or wheezing appreciated. Gastrointestinal: Soft. Nondistended. Nontender. Positive bowel sounds all 4 quadrants. No guarding. Musculoskeletal:Moves all extremities. No calf tenderness. No edema. Positive right CVA tenderness Central nervous system: AAOx3, CN2-12 grossly intact. Dermatologic: Skin warm and dry. Assessment and plan: Patient is a 57 year old male with past medical history significant for CVA, hypertension, hyperlipidemia, DM2, and asthma that presented to the emergency room with bilateral flank pain and headache. 1. Bilateral flank pain. Improved. May have been secondary to UTI. CT abd/pelvis per radiologist showed mild bibasilar atelectasis, small pericardial effusion, diverticulosis without CT evidence of acute diverticulitis, right renal cyst. Renal artery duplex per radiologist showed main renal arteries are somewhat tortuous and visualization is limited, no sonographically significant stenosis identified, kidneys are normal and symmetric in size, no solid renal masses or abnormal calcifications or hydronephrosis noted. 2. Fever. UTI. Continue Rocephin. Blood cultures with no growth. Urine culture with gram positive cocci. 3. MARIAH on CKD. S/P IVF. Likely secondary to uncontrolled hypertension. N ephrology following, recommendations appreciated. Creatinine stable, continue to monitor. 4. Hypertension. Medications adjusted by nephrology. Continue Cozaar, HCTZ, and Norvasc 5. Anemia. Likely secondary to chronic disease. Continue ferrous sulfate. Continue to monitor CBC. No signs of acute bleeding. 6. DM2. HgbA1C 6.8. Blood sugars well controlled off medication here. Continue with insulin sliding scale. Monitor accuchecks. Patient states she does not take medications at home because she does not feel she needs them. Importance of medication compliance discussed with patient. 7. Hyperlipidemia. Continue Lipitor. Case was discussed in detail with patient regarding current diagnosis and treatment plan. All questions answered.
[2018-10-07 12:32] LABS: COMPLEMENT C4 56.3 mg/dL (14.0-44.0)
--- NOTE | 2018-10-07 14:39 | CP.PCM.PN ---
Subjective - Date & Time of Evaluation Date of Evaluation: 10/07/18 Time of Evaluation: 14:30 - Subjective Subjective: Nephrology Consultation Note: Assessment: Stable Acute Kidney Injury (N17.9) likely due to hemodynamic changes, decreased oral intake Hypertensive Chronic Kidney Disease (I12.9) Chronic Kidney Disease (N18.3) Stage 3 with 1.5 gram albuminuria (R80.9) likely due to HTN, NSAIDs Anemia (D64.9), Vit D def Secondary Hyperparathyroidism (E21.1) uncontrolled severe HTn with urgency Plan No acute need for renal replacement therapy at this time. cr stable lytes reviewed Hypertension control with meds as ordered. Patient not on ACEI/ARB at present but can resume ARB, switch to losartan 100 mg/d (due to recent FDA concerns on valsartan) Monitor Input/Output start iron, MVI and weekly Vit D Physical Examination: General Appearance: Comfortable, in no acute respiratory distress, co-operative . obese Vitals reviewed and noted Head; Atraumatic, normocephalic ENT: no ulcers no thrush. EYES: Eye muscles and extraocular movement intact. Sclera is anicteric. Neck; supple no jvd Lungs: Normal respiratory rate/effort. Breath sounds bilateral equal and clear Heart: Normal rate. s1s2 normal. No rub or gallop. Extremities: no edema. No varicose veins Neurological: Patient is alert, awake and oriented to person, place and time. No focal deficit. Strength bilateral appropriate and equal Skin: Warm and dry. Normal turgor. Abdomen: Abdomen is soft. Bowel sounds +. There is no abdominal tenderness, no guarding/rigidity no organomegaly Psych: normal insight and normal affect/mood MSK: no joint tenderness Objective - Vital Signs/Intake and Output Vital Signs (last 24 hours): Temp Pulse Resp BP Pulse Ox 98.7 F 80 18 133/75 96 10/07/18 06:00 10/07/18 06:00 10/07/18 06:00 10/07/18 10:48 10/07/18 06:00 Intake and Output: 10/07/18 10/07/18 06:59 18:59 Intake Total 180 Output Total 0 Balance 180 - Medications Medications: Current Medications Acetaminophen (Tylenol 325mg Tab) 650 mg PO Q6H PRN PRN Reason: Fever >100.4 F Last Admin: 10/07/18 10:49 Dose: 650 mg Amlodipine Besylate (Norvasc) 10 mg PO DAILY [facility] Last Admin: 10/07/18 10:48 Dose: 10 mg Aspirin (Ecotrin) 81 mg PO DAILY [facility] Last Admin: 10/07/18 10:48 Dose: 81 mg Atorvastatin Calcium (Lipitor) 10 mg PO DIN [facility] Last Admin: 10/06/18 17:33 Dose: 10 mg Ergocalciferol (Drisdol 50,000 Intl Units Cap) 1 cap PO Q7D [facility] Last Admin: 10/06/18 15:28 Dose: 1 cap Ferrous Gluconate (Fergon) 324 mg PO TID [facility] Last Admin: 10/07/18 14:13 Dose: 324 mg Hydralazine HCl (Apresoline) 10 mg IVP Q6H PRN PRN Reason: Systolic Blood Pressure Last Admin: 10/06/18 06:12 Dose: 10 mg Hydrochlorothiazide (Microzide) 12.5 mg PO DAILY [facility] Last Admin: 10/07/18 10:48 Dose: 12.5 mg Ceftriaxone Sodium (Rocephin 1 Gram Ivpb) 1 gm in 100 mls @ 100 mls/hr IVPB DAILY [facility]; Protocol Last Admin: 10/07/18 10:48 Dose: 100 mls/hr Insulin Human Lispro (Humalog Low) 0 units SC ACHS [facility]; Protocol Last Admin: 10/07/18 12:00 Dose: Not Given Lidocaine (Lidoderm) 1 ea TD DAILY [facility] Last Admin: 10/07/18 10:48 Dose: 1 ea Losartan Potassium (Cozaar) 100 mg PO DAILY [facility] Last Admin: 10/07/18 10:48 Dose: 100 mg Vitamin B Complex/Vit C/Folic Acid (Nephro-Billy) 1 tab PO 0800 [facility] Last Admin: 10/07/18 10:48 Dose: 1 tab - Labs Labs: 10/07/18 07:00 10/07/18 07:00
[2018-10-07 15:18] VITALS: TEMP 99.1
[2018-10-07 22:11] VITALS: RESP 20
[2018-10-08 08:00] LABS: BASO # 0.03 K/mm3 (0.0-2.0); BASO % 0.4 % (0.0-3.0); EOS # 0.2 (0.0-0.7); EOS % 2.2 % (1.5-5.0); GRAN # 4.24 (1.4-6.5); HEMOGLOBIN 9.7 g/dL (12.0-16.0); LYMPH % 28.2 % (22.0-35.0); MEAN CELL VOLUME 81.6 fl (80.0-105.0); MEAN CORPUSCULAR HEMOGLOBIN 25.9 pg (25.0-35.0); MEAN CORPUSCULAR HGB CONC 31.8 g/dl (31.0-37.0); MEAN PLATELET VOLUME 10.3 fl (7.0-11.0); MONO # 0.6 (0.1-0.6); MONO % 8.2 % (1.0-6.0); RBC 3.74 10^6/uL (3.5-6.1); RED CELL DISTRIBUTION WIDTH 14.7 % (11.5-14.5)
[2018-10-08 08:23] LABS: ALBUMIN 4.2 g/dL (3.0-4.8); CALCIUM 9.7 mg/dL (8.4-10.5)
[2018-10-08 10:02] VITALS: BP 136/94; PULSE 100; O2SAT 100
[2018-10-08] MEDS: Lidocaine 5% Patch TD SCH (10:28)
[2018-10-08] MEDS: Multivitamin Vitamin B Complex (Nephro-Vite) Tab PO SCH (10:28)
[2018-10-08] MEDS: Insulin Lispro (humaLOG) LOW Coverage SC SCH (10:29)
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
[2018-10-10 06:31] LABS: ALBUMIN (PEP) 3.7 g/dL (3.8-4.8); ALPHA-1-GLOBULIN (PEP) 0.3 g/dL (0.2-0.3)
== END 2018-10-08 17:26 | disposition home or self-care (01) ==
LOC: ED 20:40 → ERH 10-06 03:09 → 5RSO 10-06 05:31 → INTOOBSV 10-07 10:26 → OBSVTOIN 10-07 10:26
PROVIDERS: ADMIT Hospitalist; ATTEND Hospitalist
DX: I12.9 Hypertensive chronic kidney disease with stage 1 through stage 4 chronic kidney disease, or unspecified chronic kidney disease (principal); N17.9 Acute kidney failure, unspecified; N18.3 Chronic kidney disease, stage 3 (moderate); I16.0 Hypertensive urgency; N25.81 Secondary hyperparathyroidism of renal origin; E11.22 Type 2 diabetes mellitus with diabetic chronic kidney disease; N39.0 Urinary tract infection, site not specified; E55.9 Vitamin D deficiency, unspecified; J45.909 Unspecified asthma, uncomplicated; D63.1 Anemia in chronic kidney disease; N28.1 Cyst of kidney, acquired; K57.30 Diverticulosis of large intestine without perforation or abscess without bleeding; K44.9 Diaphragmatic hernia without obstruction or gangrene; J98.11 Atelectasis; I31.3 Pericardial effusion (noninflammatory); E78.5 Hyperlipidemia, unspecified; F12.90 Cannabis use, unspecified, uncomplicated; E66.9 Obesity, unspecified; Z68.41 Body mass index [BMI] 40.0-44.9, adult; Z79.82 Long term (current) use of aspirin; Z86.73 Personal history of transient ischemic attack (TIA), and cerebral infarction without residual deficits; Z87.891 Personal history of nicotine dependence
CPT/HCPCS: 36415; 70450; 71045; 74176; 80053; 80061; 81001; 81002; 82043; 82088; 82306; 82570; 82607; 82728; 82746; 82948; 83036; 83735; 83835; 83883; 83935; 83970; 84100; 84155; 84156; 84165; 84238; 84244; 84300; 84439; 84443; 84466; 84484; 85025; 85027; 86039; 86160; 86225; 86334; 86705; 86706; 86803; 87086; 87340; 87389; 93005; 93306; 93975; 96374; 99285; G0378; G0480; J0360; J0696; J2270; J7030